=== PATIENT | female | born 1940 | race Two or more races ===

== ENCOUNTER 2018-03-13 04:20 | Inpatient (IN) | payer MEDICARE, BC ==
[~2018-03-13] VITALS: Ht 149.9 cm; Wt 76.3 kg
[2018-03-13] VITALS (17 sets, daily range): BP systolic 111–192; BP diastolic 53–77
[~2018-03-13 04:20] MED LIST: ALBU8.5H8 IH; AZIT500T5 PO; CLON-528 PO; HYDR12.5 PO; LISI-600 PO; SPIIN IH
[2018-03-13] MEDS ORDERED: ondansetron/PF 4mg/2ml inj IV ONE (04:25)
[2018-03-13 04:37] LABS: BASOPHILS % (AUTO) 0.2 % (0-1); EOSINOPHILS % (AUTO) 0.2 % (0-6); HEMATOCRIT 41.3 % (35.0-45.0); HEMOGLOBIN 13.8 g/dl (12.0-16.0); LYMPHOCYTES # (AUTO) 3.2 X10'3 (1.1-4.8); LYMPHOCYTES % (AUTO) 17.5 % (21-51); MEAN CORPUSCULAR HEMOGLOBIN 29.5 PG (27.0-31.0); MEAN CORPUSCULAR HGB CONC 33.5 % (33.0-36.5); MEAN CORPUSCULAR VOLUME 88.1 FL (78-98); MEAN PLATELET VOLUME 7.8 FL (7.4-10.4); MONOCYTES % (AUTO) 5.7 % (2-12); NEUTROPHILS # (AUTO) 13.9 X10'3 (1.8-7.7); NEUTROPHILS % (AUTO) 76.4 % (42-75); PLATELET COUNT 245 X10'3 (140-440); RED BLOOD COUNT 4.69 X10'6 (4.20-5.60); RED CELL DISTRIBUTION WIDTH 12.4 % (11.5-14.5); WHITE BLOOD COUNT 18.1 X10'3 (4.5-11.0)
[2018-03-13] MEDS ORDERED: HYDR-4353 PO (04:54)
[2018-03-13 04:55] LABS: ALANINE AMINOTRANSFERASE 53 U/L (12-78); ALBUMIN 3.6 G/DL (3.4-5.0); ALKALINE PHOSPHATASE 61 IU/L (46-116); ANION GAP 8 (8-16); ASPARTATE AMINO TRANSFERASE 41 U/L (10-37); BILIRUBIN,TOTAL 0.5 MG/DL (0.1-1.0); BLOOD UREA NITROGEN 26 MG/DL (7-18); BUN/CREATININE RATIO 30.6 (6.6-38.0); CALCIUM 9.2 MG/DL (8.5-10.1); CHLORIDE 102 MMOL/L (99-107); CREATININE 0.85 MG/DL (0.40-0.90); GLUCOSE 140 MG/DL (70-104); LIPASE 74 U/L (73-393); MAGNESIUM 2.2 MG/DL (1.5-2.4); PHOSPHORUS 3.8 MG/DL (2.3-4.5); POTASSIUM 3.9 MMOL/L (3.5-5.1); SODIUM 139 MMOL/L (135-145); TOTAL PROTEIN 7.2 G/DL (6.4-8.2); eGFR 65 ML/MIN
[2018-03-13] MEDS ORDERED: PRAV80TA3 (04:56)
[2018-03-13] MEDS ORDERED: NITR0.4T51 SL (04:56)
[2018-03-13] MEDS ORDERED: LISI-600 PO (04:57)
[2018-03-13] MEDS ORDERED: ALBU18HF2 INH (04:58)
[2018-03-13 05:33] LABS: CLARITY,URINE CLEAR (Clear); COLOR,URINE YELLOW (Yellow); GLUCOSE, URINE NEGATIVE (Neg); KETONES,URINE 15 mg/dl (Neg); LEUKOCYTE ESTERASE ,URINE NEGATIVE (Neg); NITRITES, URINE NEGATIVE (Neg); OCCULT BLOOD,URINE NEGATIVE (Neg); PROTEIN,URINE NEGATIVE (Neg); UROBILINOGEN,URINE 0.2 E.U/dL (0.2-1.0)
[2018-03-13 05:34] LABS: UA COLLECTION TYPE STRAIGHT CATH
[2018-03-13] MEDS ORDERED: acetaminophen 325mg tablet PO PRN (08:35)
[2018-03-13] MEDS ORDERED: HYDROcodone/acetaminophen 5mg/325mg tablet PO PRN (08:35)
[2018-03-13] MEDS ORDERED: HYDROcodone/acetaminophen 10/325mg tab PO PRN (08:35)
[2018-03-13] MEDS ORDERED: morphine 2 MG/ML inj. syringe IV PRN ×2 (08:35)
[2018-03-13] MEDS ORDERED: magnesium hydroxide 30ml (MOM) UD suspension PO PRN (08:35)
[2018-03-13] MEDS ORDERED: mag hydrox/Alum hydrox/simeth 30ml oral suspension PO PRN (08:35)
[2018-03-13] MEDS ORDERED: LIDOcaine 1% (10mg/ml) 2ml vial ONE (10:48)
[2018-03-13] MEDS ORDERED: scopolamine 1.5mg patch.TD72 TD ONE (11:19)
[2018-03-13] MEDS ORDERED: fentaNYL/PF 50MCG/1 ML 2ML syringe ONE ×2 (11:23→11:53)
[2018-03-13] MEDS ORDERED: sevoflurane 250ml liquid IH ONE (11:25)
[2018-03-13] MEDS ORDERED: labetalol 5mg/ml 20ml inj. IV ONE (11:25)
[2018-03-13] MEDS ORDERED: esmolol 10mg/ml inj IV ONE (11:25)
[2018-03-13] MEDS ORDERED: ringers solution, lacted 1,000 ML IV SCH (12:09)
[2018-03-13] MEDS ORDERED: morphine 4 MG/ML inj SYRINge IV PRN ×3 (12:10→13:50)
[2018-03-13] MEDS ORDERED: ondansetron/PF 4mg/2ml inj IV PRN (12:10)
[2018-03-13] MEDS ORDERED: propofol inj 20 ML IV ONE (12:17)
[2018-03-13] MEDS ORDERED: glycopyrrolate 0.2mg/ml inj ONE (12:17)
[2018-03-13] MEDS ORDERED: etomidate 2mg/ml inj. ONE ×2 (12:17)
[2018-03-13] MEDS ORDERED: neostigmine methylsulfate 1 MG/ML 10ml vial ONE (12:17)
[2018-03-13] MEDS ORDERED: LIDOcaine 2% (20mg/ml) 5ml vial ONE (12:17)
[2018-03-13] MEDS ORDERED: rocuronium 10mg/ml inj IV ONE (12:17)
[2018-03-13] MEDS ORDERED: ondansetron/PF 4mg/2ml inj ONE (12:17)
[2018-03-13] MEDS ORDERED: dexamethasone sod phosphate 4mg/ml inj. ONE (12:18)
[2018-03-13] MEDS ORDERED: esmolol inj. 10 ML IV ONE (12:18)
[2018-03-13] MEDS ORDERED: BUPIVAcaine/PF 2.5mg/ml (0.25%) 10ml vial ONE ×2 (12:43→12:44)
[2018-03-13] MEDS ORDERED: CLON0.5T23 PO (13:12)
[2018-03-13] MEDS ORDERED: non-formulary drug (Albuterol Sulfate (Proair Hfa) 2 PUFFS) IH PRN (13:20)
[2018-03-13] MEDS ORDERED: non-formulary drug (Albuterol Sulfate (Ventolin Hfa) 2 PUFFS) INH SCH (13:20)
[2018-03-13] MEDS ORDERED: non-formulary drug (Clonazepam 1 TAB) PO PRN (13:20)
[2018-03-13] MEDS ORDERED: nitroGLYCERIN 0.4mg SUBLingual tab SL PRN (13:20)
[2018-03-13] MEDS ORDERED: non-formulary drug (Pravastatin Sodium 1 TAB) SCH (13:20)
[2018-03-13] MEDS: HYDROmorphone inj. 0.5 MG/0.5 ML DISP.SYRIN IV PRN ×4 (13:22→14:12)
[2018-03-13] MEDS ORDERED: albuterol 2.5 MG/3 ML nebule NEB PRN (13:50)
[2018-03-13] MEDS: dextrose 5%-1/2 normal saline 1,000 ML IV SCH ×3 (14:43→23:30)
[2018-03-13] MEDS: ipratropium 0.5 MG/2.5ML nebule IH SCH ×2 (15:00→20:15)
[2018-03-13] MEDS: clonazePAM 0.5mg tablet PO PRN ×2 (16:03→21:40)
[2018-03-13] MEDS ORDERED: naloxone 0.4 mg/ml inj IV PRN (16:15)
[2018-03-13] MEDS ORDERED: CADD PCA waste documentation MC PRN (16:15)
[2018-03-13] MEDS: HYDROmorphone/NS 1 mg/ml CADD 50 ML IV SCH ×4 (17:00→23:00)
[2018-03-13] MEDS: pravastatin 40mg tablet PO SCH (20:00)
[2018-03-13] MEDS: ondansetron/PF 4mg/2ml inj IV PRN (23:27)
[2018-03-14] VITALS: BP 114/48
[2018-03-14] MEDS: HYDROmorphone/NS 1 mg/ml CADD 50 ML IV SCH ×12 (01:00→23:00)
[2018-03-14 04:38] LABS: BASOPHILS # (AUTO) 0.1 X10'3 (0-0.2); BASOPHILS % (AUTO) 0.8 % (0-1); EOSINOPHILS % (AUTO) 0 % (0-6); HEMATOCRIT 37.7 % (35.0-45.0); HEMOGLOBIN 12.6 g/dl (12.0-16.0); LYMPHOCYTES # (AUTO) 1.7 X10'3 (1.1-4.8); LYMPHOCYTES % (AUTO) 10.8 % (21-51); MEAN CORPUSCULAR HEMOGLOBIN 29.5 PG (27.0-31.0); MEAN CORPUSCULAR HGB CONC 33.4 % (33.0-36.5); MEAN CORPUSCULAR VOLUME 88.2 FL (78-98); MEAN PLATELET VOLUME 8.4 FL (7.4-10.4); MONOCYTES # (AUTO) 1.9 X10'3 (0-0.9); MONOCYTES % (AUTO) 12.5 % (2-12); NEUTROPHILS # (AUTO) 11.7 X10'3 (1.8-7.7); NEUTROPHILS % (AUTO) 75.9 % (42-75); PLATELET COUNT 230 X10'3 (140-440); RED BLOOD COUNT 4.28 X10'6 (4.20-5.60); RED CELL DISTRIBUTION WIDTH 12.7 % (11.5-14.5); WHITE BLOOD COUNT 15.4 X10'3 (4.5-11.0)
[2018-03-14 04:49] LABS: ALBUMIN 2.9 G/DL (3.4-5.0); ANION GAP 9 (8-16); BLOOD UREA NITROGEN 15 MG/DL (7-18); BUN/CREATININE RATIO 20.3 (6.6-38.0); CALCIUM 8.5 MG/DL (8.5-10.1); CHLORIDE 103 MMOL/L (99-107); CREATININE 0.74 MG/DL (0.40-0.90); GLUCOSE 133 MG/DL (70-104); POTASSIUM 4.3 MMOL/L (3.5-5.1); SODIUM 141 MMOL/L (135-145); TOTAL CARBON DIOXIDE 28.8 MMOL/L (24-32); eGFR 76 ML/MIN
[2018-03-14 07:09] VITALS: BP 150/54
[2018-03-14] MEDS ORDERED: non-formulary drug (Tiotropium Bromide (SPIRIVA inhaler) 1 CAP) IH SCH (08:00)
[2018-03-14] MEDS: lisinopril 10 MG tablet PO SCH (08:49)
[2018-03-14] MEDS: clonazePAM 0.5mg tablet PO PRN (08:50)
[2018-03-14] MEDS: HYDROchlorothiazide 12.5mg capsule PO SCH (08:50)
[2018-03-14] MEDS: ipratropium 0.5 MG/2.5ML nebule IH SCH ×3 (09:01→21:28)
[2018-03-14] MEDS: dextrose 5%-1/2 normal saline 1,000 ML IV SCH ×2 (09:09→20:18)
[2018-03-14] MEDS ORDERED: ketorolac tromethamine 15mg/ml inj. IV ONE (10:00)
[2018-03-14 11:40] VITALS: BP 156/60
[2018-03-14] MEDS: ondansetron/PF 4mg/2ml inj IV PRN (11:46)
[2018-03-14 20:00] VITALS: BP 104/50
[2018-03-14] MEDS: pravastatin 40mg tablet PO SCH (20:14)
[2018-03-15] VITALS: BP_SYST 105; BP_SYST 99; BP_DIAS 48; BP_DIAS 49
[2018-03-15] MEDS: HYDROmorphone/NS 1 mg/ml CADD 50 ML IV SCH ×11 (01:00→23:00)
[2018-03-15] MEDS: dextrose 5%-1/2 normal saline 1,000 ML IV SCH ×3 (04:25→21:41)
[2018-03-15 05:19] LABS: BASOPHILS % (AUTO) 0.2 % (0-1); EOSINOPHILS % (AUTO) 0.4 % (0-6); HEMATOCRIT 31.4 % (35.0-45.0); HEMOGLOBIN 10.4 g/dl (12.0-16.0); LYMPHOCYTES # (AUTO) 2.5 X10'3 (1.1-4.8); LYMPHOCYTES % (AUTO) 18.3 % (21-51); MEAN CORPUSCULAR HEMOGLOBIN 29.5 PG (27.0-31.0); MEAN CORPUSCULAR HGB CONC 33.1 % (33.0-36.5); MEAN PLATELET VOLUME 8.4 FL (7.4-10.4); MONOCYTES # (AUTO) 1.7 X10'3 (0-0.9); MONOCYTES % (AUTO) 12.4 % (2-12); NEUTROPHILS # (AUTO) 9.3 X10'3 (1.8-7.7); NEUTROPHILS % (AUTO) 68.7 % (42-75); PLATELET COUNT 221 X10'3 (140-440); RED BLOOD COUNT 3.53 X10'6 (4.20-5.60); RED CELL DISTRIBUTION WIDTH 12.5 % (11.5-14.5); WHITE BLOOD COUNT 13.6 X10'3 (4.5-11.0)
[2018-03-15 05:20] LABS: ALBUMIN 2.6 G/DL (3.4-5.0); ANION GAP 5 (8-16); BLOOD UREA NITROGEN 15 MG/DL (7-18); BUN/CREATININE RATIO 18.5 (6.6-38.0); CALCIUM 7.8 MG/DL (8.5-10.1); CHLORIDE 102 MMOL/L (99-107); CREATININE 0.81 MG/DL (0.40-0.90); GLUCOSE 117 MG/DL (70-104); POTASSIUM 3.8 MMOL/L (3.5-5.1); SODIUM 136 MMOL/L (135-145); TOTAL CARBON DIOXIDE 29.1 MMOL/L (24-32); eGFR 68 ML/MIN
[2018-03-15] MEDS: ipratropium 0.5 MG/2.5ML nebule IH SCH ×4 (06:56→20:39)
[2018-03-15 07:17] VITALS: BP 103/91
[2018-03-15] MEDS: lisinopril 10 MG tablet PO SCH (08:24)
[2018-03-15] MEDS: HYDROchlorothiazide 12.5mg capsule PO SCH (08:24)
[2018-03-15] MEDS: enoxaparin 40mg/0.4ml syringe SUBCUT SCH (08:25)
[2018-03-15] MEDS: ondansetron/PF 4mg/2ml inj IV PRN ×2 (10:40→21:45)
[2018-03-15 11:00] VITALS: BP 91/41
[2018-03-15 18:00] VITALS: BP 110/58
[2018-03-15] MEDS: pravastatin 40mg tablet PO SCH (21:00)
[2018-03-15] MEDS: metoclopramide 5 mg/ml inj IV PRN (22:43)
[2018-03-16] VITALS: BP 137/66
[2018-03-16] MEDS: HYDROmorphone/NS 1 mg/ml CADD 50 ML IV SCH ×12 (01:00→23:00)
[2018-03-16] MEDS: clonazePAM 0.5mg tablet PO PRN ×2 (01:52→18:38)
[2018-03-16 03:29] LABS: ALBUMIN 2.6 G/DL (3.4-5.0); ANION GAP 7 (8-16); BLOOD UREA NITROGEN 10 MG/DL (7-18); BUN/CREATININE RATIO 13.5 (6.6-38.0); CALCIUM 8.2 MG/DL (8.5-10.1); CHLORIDE 100 MMOL/L (99-107); CREATININE 0.74 MG/DL (0.40-0.90); GLUCOSE 131 MG/DL (70-104); POTASSIUM 3.4 MMOL/L (3.5-5.1); SODIUM 137 MMOL/L (135-145); TOTAL CARBON DIOXIDE 29.8 MMOL/L (24-32); eGFR 76 ML/MIN
[2018-03-16 03:35] LABS: BASOPHILS % (AUTO) 0.2 % (0-1); EOSINOPHILS # (AUTO) 0.2 X10'3 (0-0.9); EOSINOPHILS % (AUTO) 1.5 % (0-6); HEMATOCRIT 31.8 % (35.0-45.0); HEMOGLOBIN 10.7 g/dl (12.0-16.0); LYMPHOCYTES # (AUTO) 2.1 X10'3 (1.1-4.8); MEAN CORPUSCULAR HEMOGLOBIN 29.8 PG (27.0-31.0); MEAN CORPUSCULAR HGB CONC 33.6 % (33.0-36.5); MEAN CORPUSCULAR VOLUME 88.7 FL (78-98); MEAN PLATELET VOLUME 7.9 FL (7.4-10.4); MONOCYTES # (AUTO) 1.4 X10'3 (0-0.9); MONOCYTES % (AUTO) 11.8 % (2-12); NEUTROPHILS % (AUTO) 68.5 % (42-75); PLATELET COUNT 229 X10'3 (140-440); RED BLOOD COUNT 3.59 X10'6 (4.20-5.60); RED CELL DISTRIBUTION WIDTH 12.5 % (11.5-14.5); WHITE BLOOD COUNT 11.8 X10'3 (4.5-11.0)
[2018-03-16] MEDS: dextrose 5%-1/2 normal saline 1,000 ML IV SCH ×2 (05:01→15:26)
[2018-03-16] MEDS: ondansetron/PF 4mg/2ml inj IV PRN (05:04)
[2018-03-16 07:00] VITALS: BP 107/51
[2018-03-16] MEDS: ipratropium 0.5 MG/2.5ML nebule IH SCH ×2 (08:20→11:30)
[2018-03-16] MEDS: enoxaparin 40mg/0.4ml syringe SUBCUT SCH (08:34)
[2018-03-16] MEDS: lisinopril 10 MG tablet PO SCH (08:35)
[2018-03-16] MEDS: HYDROchlorothiazide 12.5mg capsule PO SCH (08:35)
[2018-03-16 11:00] VITALS: BP 121/57
[2018-03-16] MEDS ORDERED: methylnaltrexone br 12mg/0.6ml inj***SubQ only SQ ONE (14:40)
[2018-03-16 18:00] VITALS: BP 111/40
[2018-03-16] MEDS: ketorolac tromethamine 15mg/ml inj. IV PRN (18:08)
[2018-03-16] MEDS: ipratropium/albuterol 3ml nebule NEB SCH ×2 (19:00→22:27)
[2018-03-16] MEDS: pravastatin 40mg tablet PO SCH (20:33)
[2018-03-17] VITALS: BP 118/64
[2018-03-17] MEDS: HYDROmorphone/NS 1 mg/ml CADD 50 ML IV SCH ×6 (01:00→11:00)
[2018-03-17] MEDS: dextrose 5%-1/2 normal saline 1,000 ML IV SCH ×2 (01:13→11:21)
[2018-03-17 06:02] LABS: BASOPHILS % (AUTO) 0.3 % (0-1); EOSINOPHILS # (AUTO) 0.3 X10'3 (0-0.9); EOSINOPHILS % (AUTO) 2.8 % (0-6); HEMATOCRIT 28.3 % (35.0-45.0); HEMOGLOBIN 9.5 g/dl (12.0-16.0); LYMPHOCYTES # (AUTO) 1.9 X10'3 (1.1-4.8); LYMPHOCYTES % (AUTO) 20.2 % (21-51); MEAN CORPUSCULAR HEMOGLOBIN 29.6 PG (27.0-31.0); MEAN CORPUSCULAR HGB CONC 33.4 % (33.0-36.5); MEAN CORPUSCULAR VOLUME 88.6 FL (78-98); MEAN PLATELET VOLUME 7.8 FL (7.4-10.4); MONOCYTES # (AUTO) 1.1 X10'3 (0-0.9); MONOCYTES % (AUTO) 11.7 % (2-12); NEUTROPHILS # (AUTO) 6.2 X10'3 (1.8-7.7); PLATELET COUNT 204 X10'3 (140-440); RED CELL DISTRIBUTION WIDTH 12.1 % (11.5-14.5); WHITE BLOOD COUNT 9.5 X10'3 (4.5-11.0)
[2018-03-17 06:06] LABS: ALBUMIN 2.1 G/DL (3.4-5.0); ANION GAP 7 (8-16); BLOOD UREA NITROGEN 6 MG/DL (7-18); BUN/CREATININE RATIO 9.4 (6.6-38.0); CALCIUM 7.9 MG/DL (8.5-10.1); CHLORIDE 103 MMOL/L (99-107); CREATININE 0.64 MG/DL (0.40-0.90); GLUCOSE 120 MG/DL (70-104); SODIUM 141 MMOL/L (135-145); TOTAL CARBON DIOXIDE 30.7 MMOL/L (24-32); eGFR 90 ML/MIN
[2018-03-17 06:13] LABS: POTASSIUM 2.9 MMOL/L (3.5-5.1)
[2018-03-17] MEDS ORDERED: potassium Cl 40MEQ/NS 500ml 500 ML IV PRN ×2 (06:45)
[2018-03-17] MEDS ORDERED: potassium Cl 20 mEq SR tablet PO PRN ×2 (06:45)
[2018-03-17] MEDS: HYDROchlorothiazide 12.5mg capsule PO SCH (07:19)
[2018-03-17] MEDS: lisinopril 10 MG tablet PO SCH (07:19)
[2018-03-17] MEDS: ondansetron/PF 4mg/2ml inj IV PRN ×3 (07:20→23:47)
[2018-03-17] MEDS: enoxaparin 40mg/0.4ml syringe SUBCUT SCH (07:20)
[2018-03-17] MEDS: clonazePAM 0.5mg tablet PO PRN ×2 (07:22→15:34)
[2018-03-17 07:25] LABS: MAGNESIUM 1.9 MG/DL (1.5-2.4)
[2018-03-17] MEDS: ipratropium/albuterol 3ml nebule NEB SCH ×5 (07:26→19:15)
[2018-03-17 07:30] VITALS: BP 122/53
[2018-03-17] MEDS ORDERED: potassium Cl oral solution 20 MEQ/15 ML PO ONE (09:05)
[2018-03-17] MEDS ORDERED: magnesium hydroxide 30ml (MOM) UD suspension PO ONE (11:40)
[2018-03-17] MEDS ORDERED: oxyCODONE/APAP 10/325mg tablet PO PRN (11:45)
[2018-03-17 13:05] VITALS: BP 120/57
[2018-03-17] MEDS ORDERED: HYDROmorphone inj. 0.5 MG/0.5 ML DISP.SYRIN IV PRN (14:30)
[2018-03-17] MEDS: docusate sodium 100mg/10ml UD cup PO SCH ×2 (15:34→20:00)
[2018-03-17 18:30] VITALS: BP 112/56
[2018-03-17] MEDS: pravastatin 40mg tablet PO SCH (20:25)
[2018-03-18] VITALS: BP 152/70
[2018-03-18] MEDS: metoclopramide 5 mg/ml inj IV PRN ×2 (01:52→10:30)
[2018-03-18] MEDS: ketorolac tromethamine 15mg/ml inj. IV PRN ×2 (01:58→12:40)
[2018-03-18 02:30] VITALS: BP 152/70
[2018-03-18 05:13] LABS: BASOPHILS # (AUTO) 0.1 X10'3 (0-0.2); EOSINOPHILS # (AUTO) 0.3 X10'3 (0-0.9); EOSINOPHILS % (AUTO) 2.8 % (0-6); HEMATOCRIT 28.9 % (35.0-45.0); HEMOGLOBIN 9.5 g/dl (12.0-16.0); LYMPHOCYTES # (AUTO) 1.9 X10'3 (1.1-4.8); LYMPHOCYTES % (AUTO) 18.3 % (21-51); MEAN CORPUSCULAR HEMOGLOBIN 29.3 PG (27.0-31.0); MEAN CORPUSCULAR VOLUME 88.9 FL (78-98); MEAN PLATELET VOLUME 8.7 FL (7.4-10.4); MONOCYTES # (AUTO) 1.2 X10'3 (0-0.9); MONOCYTES % (AUTO) 11.5 % (2-12); NEUTROPHILS # (AUTO) 7.1 X10'3 (1.8-7.7); NEUTROPHILS % (AUTO) 66.4 % (42-75); PLATELET COUNT 223 X10'3 (140-440); RED BLOOD COUNT 3.25 X10'6 (4.20-5.60); RED CELL DISTRIBUTION WIDTH 12.4 % (11.5-14.5); WHITE BLOOD COUNT 10.7 X10'3 (4.5-11.0)
[2018-03-18 05:33] LABS: ALBUMIN 2.3 G/DL (3.4-5.0); ANION GAP 7 (8-16); BLOOD UREA NITROGEN 4 MG/DL (7-18); BUN/CREATININE RATIO 6.2 (6.6-38.0); CALCIUM 8.4 MG/DL (8.5-10.1); CHLORIDE 105 MMOL/L (99-107); CREATININE 0.65 MG/DL (0.40-0.90); GLUCOSE 100 MG/DL (70-104); MAGNESIUM 1.9 MG/DL (1.5-2.4); POTASSIUM 3.7 MMOL/L (3.5-5.1); SODIUM 143 MMOL/L (135-145); TOTAL CARBON DIOXIDE 31.1 MMOL/L (24-32); eGFR 88 ML/MIN
[2018-03-18] MEDS: ipratropium/albuterol 3ml nebule NEB SCH ×2 (07:00→10:25)
[2018-03-18 07:11] VITALS: BP 143/89
[2018-03-18] MEDS: docusate sodium 100mg/10ml UD cup PO SCH (08:00)
[2018-03-18] MEDS: lisinopril 10 MG tablet PO SCH (08:25)
[2018-03-18] MEDS: enoxaparin 40mg/0.4ml syringe SUBCUT SCH (08:25)
[2018-03-18] MEDS: clonazePAM 0.5mg tablet PO PRN (08:26)
[2018-03-18] MEDS ORDERED: Potassium Cl inj 20 MEQ in dextrose 5%-1/2 normal saline 1,000 ML IV SCH (08:34)
[2018-03-18 12:04] VITALS: BP 136/52
[2018-03-18] MEDS: ondansetron/PF 4mg/2ml inj IV PRN (12:36)
== END 2018-03-18 13:40 | DRG 336 ==
LOC: ER 04:21 → ED HOLD 08:34 → SUR 3N 14:24
PROVIDERS: ADMIT Internal Medicine; ATTEND Internal Medicine
PROC: 0DN80ZZ Release Small Intestine, Open Approach (ICD-10-PCS; principal; 2018-03-14)
DX: K56.50 Intestinal adhesions [bands], unspecified as to partial versus complete obstruction (principal); R65.10 Systemic inflammatory response syndrome (SIRS) of non-infectious origin without acute organ dysfunction; E87.2 Acidosis; J44.9 Chronic obstructive pulmonary disease, unspecified; E78.5 Hyperlipidemia, unspecified; E87.6 Hypokalemia; F41.0 Panic disorder [episodic paroxysmal anxiety]; K56.2 Volvulus; G89.29 Other chronic pain; F41.9 Anxiety disorder, unspecified; I10 Essential (primary) hypertension; K56.7 Ileus, unspecified; Z60.2 Problems related to living alone; I25.10 Atherosclerotic heart disease of native coronary artery without angina pectoris; M79.7 Fibromyalgia; Z90.710 Acquired absence of both cervix and uterus; Z95.1 Presence of aortocoronary bypass graft; Z90.49 Acquired absence of other specified parts of digestive tract; Z79.899 Other long term (current) drug therapy; Z87.891 Personal history of nicotine dependence; Z82.49 Family history of ischemic heart disease and other diseases of the circulatory system; Z82.41 Family history of sudden cardiac death; Z80.9 Family history of malignant neoplasm, unspecified
CPT/HCPCS: 36415; 71045; 74176; 80048; 80053; 81003; 83605; 83690; 83735; 84100; 84132; 84484; 85025; 86885; 86900; 86901; 87040; 87070; 93005; 94640; 94760; 96374; 97116; 97161; 97530; 99285; A7000; C1758; G0378; J1100; J1170; J1650; J1885; J2001; J2270; J2405; J2704; J2710; J2765; J3010; J3480; J3490; J7030; J7120